=== PATIENT | female | born 1980 | race Caucasian/White ===

== ENCOUNTER 2016-08-27 15:55 | Emergency (ER) | payer MEDICAID ==
[~2016-08-27] VITALS: Ht 170.2 cm; Wt 110.0 kg
[~2016-08-27 15:55] MED LIST: ACET-62 PO; GABA-305 PO; IBUP-1724 PO; SUMA25TA PO
--- OUTSIDE RECORDS SUMMARY | 2016-08-27 15:59 | XMS REPORT | Continuity of Care Document ---
Author Author [facility] Organization [facility] Address Unknown Phone Unavailable Care Team Providers Care Director Of Home Economics Name Role Phone CARSON POWER DO Primary Care Physician [phone] Insurance Providers Guarantor PrashantCarmencita Address [address] [address] Email DENIED/NO TO PT [facility] Policy Number [id number] Subscriber's Name Carmencita Hart Relationship 18 Self Effective Date 16 Expiration Date 16 Advance Directives Directive Response Recorded Date/Time Advanced Directives Type None 05/15/16 6:16pm Chief Complaint and Reason for Visit Chief Complaint Lower Extremity Injury Reason for Visit Contusion of foot Sprain of foot Problems Active Problems Medical Problem Onset Date Status Migraine Unknown Acute Trapezius muscle spasm Unknown Acute Vaginal bleeding between periods Unknown Acute Past Problems Medical Problem Onset Date Acute exacerbation of chronic low back pain Unknown Back pain Unknown Contusion of foot Unknown Sprain of foot Unknown Medications Current Home Medications Medication Dose Units Route Directions Days Qty Instructions Start Date Acetaminophen 500 Mg Tablet 500 Mg Oral Every 4 Hours as needed for Pain 05/15/16 Gabapentin 600 Mg Tablet 1,200 Mg Oral Twice A Day 12/04/14 Ibuprofen 200 Mg Tablet 600 Mg Oral Every 6 Hours as needed for Pain 05/15/16 Sumatriptan (Imitrex) 25 Mg Tablet 25 Mg Oral Daily as needed for Migraine Headache 01/15/16 Past Home Medications Medication Directions Ordered Status Bupropion Hcl (Bupropion Hcl Sr) 150 Mg Tablet.er, 150 Mg Oral Twice A Day Discontinued Clonazepam 1 Mg Tablet, 1 Mg Oral Twice A Day 07/30/13 Discontinued Escitalopram Oxalate 10 Mg Tablet, 10 Mg Oral Daily 07/30/13 Discontinued Ibuprofen 800 Mg Tablet, 1 Tab Oral Q6h Prn 07/30/13 Discontinued Social History Social History Problem Response Recorded Date/Time Onset Date Status Chewing Tobacco Status No 07/30/2013 10:49am Not Applicable Not Applicable Hx Substance Use No 05/15/2016 6:45pm Not Applicable Not Applicable Hx Alcohol Use Y 1X MO 05/15/2016 6:45pm Not Applicable Not Applicable Has the pt used tobacco in the last 12 months Yes 07/30/2013 10:49am Not Applicable Not Applicable Tobacco Usage none 12/04/2014 10:09pm Not Applicable Not Applicable Query Response Start Date Stop Date Smoking Status Current every day smoker Hospital Discharge Instructions No hospital discharge instructions. Plan of Care Discharge Date 05/15/16 7:18pm Disposition 01 DISCHARGED HOME, SELF-CARE Condition at Discharge Stable Instructions/Education Provided Ankle Sprain Prescriptions See Medication Section Referrals CARSON POWER DO Address: [address] [address] Care Plan and Goals Physician Care Plan Problem: Ankle sprain Goal: Follow up with primary care provider Instructions: Take medications and follow care plan as discussed/written Functional Status No functional status results. Allergies, Adverse Reactions, Alerts Allergen Type Severity Reaction Status Last Updated Hydrocodone Allergy Unknown HIVES Active 05/15/16 Baclofen Allergy Unknown Active 05/15/16 Tramadol Allergy Unknown Active 05/15/16 Immunizations Query Response on File Recorded Date/Time Hx Influenza Vaccination No 01/10/15 1:13pm Hx Pneumococcal Vaccination No 01/10/15 1:13pm Hx Influenza Vaccination No 01/10/15 1:13pm Influenza Vaccine Hx NO 05/15/16 6:45pm Vital Signs Acute Vital Signs Vital Response Date/Time Temperature (Fahrenheit) 98.1 deg F (96.8 - 99.1) 05/15/2016 6:16pm Temperature (Calculated Celsius) 36.24333 degrees C (36.0 - 37.3) 05/15/2016 6:16pm Pulse Rate (adult) 74 bpm (60 - 100) 05/15/2016 7:18pm Respiratory Rate 16 breaths/min (10 - 20) 05/15/2016 7:18pm O2 Sat by Pulse Oximetry 97 % (90 - 100) 05/15/2016 7:18pm Blood Pressure 157/96 mm Hg 05/15/2016 7:18pm Height (Feet) 5 feet 05/15/2016 6:16pm Height (Inches) 1.00 inches 05/15/2016 6:16pm Weight (Kilograms) 113.900 kg 05/15/2016 6:16pm Body Mass Index (BMI) 47.0 05/15/2016 6:16pm Results Laboratory Results Test Name Result Units Flags Reference Collection Date/Time Result Date/ Time Comments Urine Collection Type VOIDED-NOT CC-MIDSTR 02/27/2016 5:06pm 2015 5:24pm Urine Color YELLOW YELLOW 02/27/2016 5:06pm 02/27/2016 5:24pm Urine Turbidity CLEAR CLEAR 02/27/2016 5:06pm 02/27/2016 5:24pm Urine Specific [place] 1.020 1.015-1.025 02/27/2016 5:06pm 2015 5:24pm Urine pH 6.0 5.0-8.0 02/27/2016 5:06pm 02/27/2016 5:24pm Urine Leukocyte Esterase NEGATIVE NEGATIVE 02/27/2016 5:06pm 2015 5:24pm Urine Nitrite NEGATIVE NEGATIVE 02/27/2016 5:06pm 02/27/2016 5:24pm Urine Protein NEGATIVE NEGATIVE 02/27/2016 5:06pm 02/27/2016 5:24pm Urine Glucose (UA) NEGATIVE NEGATIVE 02/27/2016 5:06pm 02/27/2016 5: 24pm Urine Ketones NEGATIVE NEGATIVE 02/27/2016 5:06pm 02/27/2016 5:24pm Urine Urobilinogen 0.2 EU/DL NORMAL 02/27/2016 5:06pm 02/27/2016 5: 24pm Urine Bilirubin NEGATIVE NEGATIVE 02/27/2016 5:06pm 02/27/2016 5: 24pm Urine Blood NEGATIVE NEGATIVE 02/27/2016 5:06pm 02/27/2016 5:24pm Urinalysis Comment MICROSCOPIC NOT IND. 02/27/2016 5:06pm 2015 5:24pm Procedures Procedure Status Date Provider(s) X-RAY EXAM L-S SPINE 2/3 VWS Completed 02/27/16 X-RAY EXAM OF PELVIS Completed 02/27/16 X-RAY EXAM OF FOOT Completed 02/27/16 URINALYSIS AUTO W/O SCOPE Completed 02/27/16 URINE TEST Completed 02/27/16 THER/PROPH/DIAG INJ SC/IM Completed 02/27/16 THER/PROPH/DIAG INJ SC/IM Completed 02/27/16 THER/PROPH/DIAG INJ SC/IM Completed 02/27/16 EMERGENCY DEPT VISIT Completed 02/27/16 229655"INJECTION, HYDROMORPHONE, UP TO 4 MG" Completed 02/27/16 [id number]"INJECTION, KETOROLAC TROMETHAMINE, PER 15 MG" Completed 02/27/16 [id number]"INJECTION, ORPHENADRINE CITRATE, UP TO 60 MG" Completed 02/27/16 Encounters Encounter Location Arrival/Admit Date Discharge/Depart Date Attending Provider Departed Emergency Room [facility] 05/15/16 6:06pm 05/15/16 7: 18pm ARMANI REHMAN MD Departed Emergency Room [facility] 02/27/16 4:13pm 02/27/16 6: 01pm DORINA MADRIGAL MD Recent Diagnosis
--- OUTSIDE RECORDS SUMMARY | 2016-08-27 15:59 | XMS REPORT | Continuity of Care Document ---
Author Author [facility] Organization [facility] Address Unknown Phone Unavailable Allergies Active Description Code Type Severity Reaction Onset Reported/Identified Relationship to Patient Clinical Status Yes No Known Drug Intolerances No Known Drug Intolerances Drug Allergy Unknown N/A 10/26/2001 Yes No Known Contrast Allergies No Known Contrast Allergies Drug Allergy Unknown N/A 05/20/2008 Yes No Known Drug Allergies No Known Drug Allergies Drug Allergy Unknown N/A 05/20/2008 Yes No Known Food Allergies No Known Food Allergies Drug Allergy Unknown N/A 05/20/2008 Yes NO KNOWN LATEX ALLERGY/SENSITI NO KNOWN LATEX ALLERGY/SENSITI Drug Allergy Unknown N/A 2007 Yes No Known Drug Intolerances No Known Drug Intolerances Drug Allergy Unknown . 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 Visit Date/Time Discharge Status Pt. Type Provider Facility Loc./Unit Complaint [id number] 07/04/2016 20:34:00 2016 21:30:00 DIS [id number] 04/15/2016 15:04:00 2015 15:57:00 [id number] 12/01/2015 10:09:00 2015 10:50:00 DIS [id number] 09/25/2015 13:43:00 2015 14:34:00 [id number] 04/23/2014 22:14:00 2013 23:17:00 DIS Emergency Arcenio ANDRADE, [facility] [id number] 11/19/2015 14:10:00 Document Registration
[2016-08-27 16:00] VITALS: TEMP 98; Ht 170.2 cm; Wt 110.0 kg
--- NOTE | 2016-08-27 17:10 | NUR ---
TRIAGE NOTE SPOKE TO PT IN LOBBY, SEE NO CHANGES, NO SIGNS OF DISTRESS, PT DENIES ANY DYPSNEA OR DIFFICULTY SWALLOWING AT THIS TIME.
--- NOTE | 2016-08-27 18:41 | ERPDOC ---
Departure Disposition Decision Date: Aug 27, 2016 Disposition Decision Time: 18:57 Disposition: 01 DISCHARGED HOME, SELF-CARE Impression Impression Impression: Primary Impression: Dry tooth socket Additional Impression: Cold sore Severity: Moderate Condition: Stable Seen By: Physician only Referrals: CARSON POWER DO (PCP) Patient Instructions: Dry Socket (ED) Problems/Meds/Labs Reviewed?: Yes Medications reviewed and manag: Yes Additional Instructions: Follow-up with your dentist on Monday Follow up care ordered?: Yes Mental Status: Alert, Oriented Scripts Acyclovir (Acyclovir) 200 Mg Capsule 1 CAP PO 5XD, #25 CAP Prov: DORINA MADRIGAL MD 08/27/16 Amoxicillin (Amoxicillin) 500 Mg Tablet 500 MG PO TID for 7 Days, 0 Refills Prov: DORINA MADRIGAL MD 08/27/16 Oxycodone HCl/Acetaminophen (Oxycodone-Acetaminophen 5-325) 5-325 Tablet 1-2 TAB PO Q6H Y for PAIN, #10 TAB Prov: DORINA MADRIGAL MD 08/27/16 HPI General Chief Complaint: Toothache Stated Complaint: LIPS SWOLLEN,CAN'T SWALLOW Time Seen by Provider: 18:41 Source: patient, family Exam Limitations: no limitations HPI Dental Initial Comments Patient is a 35-year-old female presents emergency room for evaluation of left lower jaw pain, lip pain and swelling. Patient had tooth removed left lower molar approximately 6 days ago for the last 2 days patient's had increasing pain and swelling of the face, she also has swelling of her lips with a lesion on the left upper anterior. Patient states she gets these lesions occasionally. Patient difficulty swallowing secondary to severe pain so decided present to the ER for evaluation. Patient has not followed up with her dentist Occurred At: home Onset: Gradual, Getting worse Duration: 1 week Pain Scale: Now & Worst: 8/10 Location: L upper (lip), L lower (jaw) Problem: dry socket Allergies: Coded Allergies: baclofen (Unverified Allergy, Unknown, 08/27/16) hydrocodone (Verified Allergy, Unknown, HIVES, 08/27/16) tramadol (Verified Allergy, Unknown, 08/27/16) Past History Past Medical History Musculoskeletal: back pain Surgical History Denies Surgeries Vaccines Hx Influenza Vaccination: No Hx Pneumococcal Vaccination: No Social History Substance Use Type: does not use Alcohol Intake: none Review of Systems Constitutional Constitutional: appetite decrease, DENIES: chills, dizziness, fever, weakness ENMT Sinuses: DENIES: congestion Teeth: chipped/cracked tooth, missing teeth, pain Jaw: pain Pulmonary Respiratory: DENIES: cough, dyspnea, sputum, tachypnea GI Upper Abdomen: DENIES: nausea, pain, vomiting Lower Abdomen: DENIES: constipation, diarrhea, pain Musculoskeletal General: DENIES: cramps, pain, weakness Integumentary Skin: DENIES: color change, itching, rash Endocrine Endocrine: DENIES: heat/cold intolerance Hematologic/Lymphatic Hematologic/Lymphatic: DENIES: anemia Exam General General Nourishment: well nourished, well developed Vital Signs: RN Vital Signs have been reviewed: Yes, Temperature: 98.0, Source : Oral, Heart Rate: 84, Respiratory Rate: 14, BP: 200/100, Pulse Oximetry: 98 Height (Feet): 5 Height (Inches): 7.00 [facility] Dental Face: NOT FOUND: bruising, erythema, swelling Jaw: NOT FOUND: asymmetry Glands: NOT FOUND: L parotid swollen, R parotid swollen Lips: other (patient has superior anterior lesion on the left consistent with a cold sore), swelling Gums: moist, pink, NOT FOUND: lesion, swelling, ulcers Teeth: caries, fractures, missing, other (patient has a dry socket in the left posterior where molar was removed) Neck: NOT FOUND: R anterior adenopathy, R posterior adenopathy Neurologic RN Documented GCS Eye Opening: Verbal: Motor: Total: Differential Diagnoses Considering: Gingival Abscess, Caries, Dry Socket, Other (cold sore) Progress Results/Orders Orders Procedure Category Date Status Time Amoxicillin (Amoxil) PHA 08/27/16 Complete 19:00 Oxycodone/Apap 5/325 PHA 08/27/16 Complete (Prepack) (Percocet 19:00 Medications Current ED Medications Amoxicillin (Amoxil) 500 mg O ONCE PO Last administered on 08/27/16 19:23; Start 08/27/16 at 19:00; Stop 08/27/16 at 19:01; Status DC Oxycodone/ Acetaminophen (Percocet 5 (Prepack)) 1 pack O ONCE SENT HOME Last administered on 08/27/16 19:24; Start 08/27/16 at 19:00; Stop 08/27/16 at 19:01 ; Status DC DORINA MADRIGAL MD Aug 27, 2016 18:41
--- NOTE | 2016-08-27 18:45 | NUR ---
PHYSICIAN DR. MADRIGAL AT BEDSIDE FOR EXAM.
[2016-08-27] MEDS ORDERED: BUSP15TA3 PO (18:53)
[2016-08-27] MEDS ORDERED: OXYC-541 PO ×2 (18:53→19:01)
[2016-08-27] MEDS ORDERED: SERT100T PO (18:53)
--- OUTSIDE RECORDS SUMMARY | 2016-08-27 18:53 | XMS REPORT | Continuity of Care Document ---
Author Author [facility] Organization [facility] Address Unknown Phone Unavailable Allergies Active Description [...] Status Pt. Type Provider Facility Loc./Unit Complaint [id number] 07/04/2016 20:34:00 2016 21:30:00 DIS [id number] 04/15/2016 15:04:00 2015 15:57:00 [id number] 12/01/2015 10:09:00 2015 10:50:00 DIS [id number] 09/25/2015 13:43:00 2015 14:34:00 DIS Emergency [id number] 04/23/2014 22:14:00 2013 23:17:00 DIS Emergency Arcenio ANDRADE, [facility] [id number] 11/19/2015 14:10:00 Document Registration
[2016-08-27] MEDS ORDERED: AMOXICILLIN 500 MG CAPSULE PO ONE (19:00)
[2016-08-27] MEDS ORDERED: OXYCODONE/APAP 5/325 (Prepack) SENT HOME ONE (19:00)
[2016-08-27] MEDS ORDERED: AMOX500T2 PO (19:01)
[2016-08-27] MEDS ORDERED: ACYC200C PO (19:01)
[2016-08-27 19:27] VITALS: BP 157/85; PULSE 67; RESP 18; O2SAT 97
--- NOTE | 2016-08-27 19:27 | NUR ---
DISCHARGE WRITTEN INSTRUCTIONS WITH ACYCLOVIR, PERCOCET, AND AMOXICILLIN RX REVIEWED AND SENT WITH PT. PT VERBALIZES UNDERSTANDING OF DI AND MEDICATIONS, DENIES QUESTIONS. REPORTS PAIN 9-03/14. PT AMBULATES OUT OF ER WITH STEADY GAIT ACCOMP BY FAMILY AT THIS TIME.
== END 2016-08-27 19:27 | disposition home or self-care (01) ==
LOC: ED 15:55
DX: M27.3 Alveolitis of jaws (principal); B00.1 Herpesviral vesicular dermatitis